=== PATIENT | male | born 1995 | race Caucasian/White ===

== ENCOUNTER 2023-04-05 17:35 | Emergency (ER) | payer BC ==
[2023-04-05 17:43] VITALS: RESP 18
[2023-04-05] MEDS ORDERED: KETOROLAC 15 MG/ML 1 ML VIAL IM STA (17:48)
[2023-04-05 18:28] LABS: Appearance,Urine Clear (Clear); Bilirubin,Urine Negative (Negative); Blood,Urine Negative (Negative); Color,Urine Colorless; Glucose,Urine (UA) Negative (Negative); Ketones,Urine Trace (Negative); Leukocyte Esterase,Urine Negative (Negative); Nitrite,Urine Negative (Negative); Protein,Urine Negative (Negative); Specific Gravity,Urine 1.011 (1.001-1.035); Urobilinogen,Urine <2.0 mg/dL (<2.0)
--- NOTE | 2023-04-05 20:02 | US ---
EXAMINATION TYPE: US scrotum with doppler. Grayscale and color Doppler Duplex imaging performed of krysten elias scrotum. DATE OF EXAM: 04/05/2023 COMPARISON: NONE CLINICAL INDICATION: Male, 27 years old with history of R testicle pain; Right testicle pain and swel ling per patient. No injury. EXAM MEASUREMENTS: TESTICLES: Right Testicle: 2.7 x 2.9 x 2.1 cm Left Testicle: 3.0 x 3.1 x 2.1 cm EPIDIDYMIS HEAD: Right Epididymis: 0.8 x 0.9 x 0.8 cm Left Epididymis: 0.7 x 0.8 x 0.9 cm Doppler performed to assess for testicular vascularity; good bilateral color flow and waveforms are s een. There is no evidence of testicular torsion. Presence of hydroceles: Small left Presence of varicoceles: no No evidence of testicular or extratesticular mass. IMPRESSION: No evidence of testicular torsion at the time of the exam. Small left hydrocele.
--- NOTE | 2023-04-05 20:16 | ED ---
Male Urogenital HPI - General Chief complaint: Urogenital Stated complaint: male gu Time Seen by Provider: 04/05/23 17:40 Source: patient, family Mode of arrival: ambulatory Limitations: no limitations - History of Present Illness Initial comments: 27-year-old male presenting with chief complaint of pain to the right testicle. States the pain started a few days ago and has been intermittent. States that he is having some swelling today. He also had swelling on the first day which went down the following day and return today. No redness. No dysuria or hematuria. States he is having some mild discomfort in the abdomen. No injury or trauma. - Related Data Allergies Allergy/AdvReac Type Severity Reaction Status Date / Time No Known Allergies Allergy Verified 04/05/23 17:39 Review of Systems ROS Statement: Those systems with pertinent positive or pertinent negative responses have been documented in the HPI. ROS Other: All systems not noted in ROS Statement are negative. Past Medical History Past Medical History: Diabetes Mellitus History of Any Multi-Drug Resistant Organisms: None Reported Past Surgical History: No Surgical Hx Reported Past Psychological History: ADD/ADHD, Anxiety, Depression Smoking Status: Never smoker Past Alcohol Use History: Occasional Past Drug Use History: Marijuana General Exam Limitations: no limitations General appearance: alert, in no apparent distress Head exam: Present: atraumatic, normocephalic, normal inspection Eye exam: Present: normal appearance, EOMI Neck exam: Present: normal inspection, full ROM Respiratory exam: Absent: respiratory distress exam: Present: normal inspection. Absent: testicular tenderness, scrotal swelling Neurological exam: Present: alert, oriented X3 Psychiatric exam: Present: normal affect, normal mood Skin exam: Present: warm, dry, intact, normal color. Absent: rash Course Vital Signs 04/05/23 04/05/23 17:36 20:24 Temperature 98.6 F 98.5 F Pulse Rate 89 98 Respiratory 18 18 Rate Blood Pressure 130/87 112/78 O2 Sat by Pulse 99 95 Oximetry Medical Decision Making - Medical Decision Making Was pt. sent in by a medical professional or institution (, PA, TEENAGE BABYSITTER, urgent care, hospital, or group home...) When possible be specific @ -No Did you speak to anyone other than the patient for history (EMS, parent, family, police, friend...)? What history was obtained from this source @ -No Did you review nursing and triage notes (agree or disagree)? Why? @ -I reviewed and agree with nursing and triage notes Were old charts reviewed (outside hosp., previous admission, EMS record, old EKG, old radiological studies, urgent care reports/EKG's, group home records)? Report findings @ -No old charts were reviewed Differential Diagnosis (chest pain, altered mental status, abdominal pain women, abdominal pain men, vaginal bleeding, weakness, fever, dyspnea, syncope, headache, dizziness, GI bleed, back pain, seizure, CVA, palpatations, mental health, musculoskeletal)? @ -Differential includes testicular torsion, epididymitis, orchitis, hydrocele, vericocele, this is not an all inclusive list EKG interpreted by me (3pts min.). @ -As above X-rays interpreted by me (1pt min.). @ -None done CT interpreted by me (1pt min.). @ -None done U/S interpreted by me (1pt. min.). @ -Ultrasound shows no evidence of testicular torsion. There is a small left hydrocele. What testing was considered but not performed or refused? (CT, X-rays, U/S, labs)? Why? @ -None What meds were considered but not given or refused? Why? @ -None Did you discuss the management of the patient with other professionals (professionals i.e. , PA, TEENAGE BABYSITTER, lab, RT, psych nurse, social service director, line worker, teacher, donor relations officer, renal case manager)? Give summary @ -No Was smoking cessation discussed for >3mins.? @ -No Was critical care preformed (if so, how long)? @ -No Were there social determinants of health that impacted care today? How? (Homelessness, low income, unemployed, alcoholism, drug addiction, transportation, low edu. Level, literacy, decrease access to med. care, custodial, rehab)? @ -No Was there de-escalation of care discussed even if they declined (Discuss DNR or withdrawal of care, Hospice)? DNR status @ -No What co-morbidities impacted this encounter? (DM, HTN, Smoking, COPD, CAD, Cancer, CVA, ARF, Chemo, Hep., AIDS, mental health diagnosis, sleep apnea, morbid obesity)? @ -None Was patient admitted / discharged? Hospital course, mention meds given and route, prescriptions, significant lab abnormalities, going to OR and other pertinent info. @ -27-year-old male presenting with chief complaint of testicular discomfort. History and physical exam were conducted. No evidence of swelling, erythema, or induration. Urine shows no infectious process. Ultrasound shows no evidence of torsion, there is a hydrocele present on the left side. Patient is educated on today's findings and supportive management for hydrocele. Follow-up with PCP. Report back to ER with any new or worsening symptoms. Discussed return parameters and answered all questions. Patient conveyed verbal understanding and agreed to the plan. I discussed this case in detail with my attending Dr. Gamino Undiagnosed new problem with uncertain prognosis? @ -No Drug Therapy requiring intensive monitoring for toxicity (Heparin, Nitro, Insulin, Cardizem)? @ -No Were any procedures done? @ -No Diagnosis/symptom? @ -Hydrocele Acute, or Chronic, or Acute on Chronic? @ -Acute Uncomplicated (without systemic symptoms) or Complicated (systemic symptoms)? @ -Uncomplicated Side effects of treatment? @ -No Exacerbation, Progression, or Severe Exacerbation? @ -No Poses a threat to life or bodily function? How? (Chest pain, [place], [place], pneumonia, PE, COPD, DKA, ARF, appy, cholecystitis, CVA, Diverticulitis, Homicidal, Suicidal, threat to staff... and all critical care pts) @ -No - Lab Data Lab Results 04/05/23 Range/Units 18:09 Urine Color Colorless Urine Appearance Clear (Clear) Urine pH 7.0 (5.0-8.0) Ur Specific [place] 1.011 (1.001-1.035) Urine Protein Negative (Negative) Urine Glucose (UA) Negative (Negative) Urine Ketones Trace H (Negative) Urine Blood Negative (Negative) Urine Nitrite Negative (Negative) Urine Bilirubin Negative (Negative) Urine Urobilinogen <2.0 (<2.0) mg/dL Ur Leukocyte Esterase Negative (Negative) Disposition Clinical Impression: Hydrocele Disposition: HOME SELF-CARE Condition: Good Instructions (If sedation given, give patient instructions): Hydrocele (ED), Testicle Pain (ED) Additional Instructions: Follow-up with PCP. Report back to ER with any new or worsening symptoms. Take Motrin and Tylenol as needed. Is patient prescribed a controlled substance at d/c from ED?: No Referrals: Jem Damon MD [Primary Care Provider] - 1-2 days Time of Disposition: 20:15
[2023-04-05 20:35] VITALS: BP 112/78; PULSE 98; TEMP 98.5
== END 2023-04-05 20:29 | disposition home or self-care (01) ==
LOC: EC 17:35
DX: N43.3 Hydrocele, unspecified (principal); E11.9 Type 2 diabetes mellitus without complications; F12.90 Cannabis use, unspecified, uncomplicated; Z86.59 Personal history of other mental and behavioral disorders
CPT/HCPCS: 81003; 87491; 87591; 93975; 76870; 99284; 96372; J1885

== ENCOUNTER 2023-05-21 18:02 | Emergency (ER) | payer BC ==
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
[2023-05-21 21:05] VITALS: BP 137/90; PULSE 90; RESP 16; TEMP 98.9
[2023-05-21 21:19] LABS: African American GFR (CKD) >90 (>60 ml/min/1.73 sqM); Anion Gap 14 mmol/L; Blood Urea Nitrogen 14 mg/dL (9-20); Calcium 9.5 mg/dL (8.4-10.2); Carbon Dioxide 25 mmol/L (22-30); Chloride 102 mmol/L (98-107); Glucose 150 mg/dL (74-99); Non-African American GFR(CKD) >90 (>60 ml/min/1.73 sqM); Potassium 4.1 mmol/L (3.5-5.1); Sodium 141 mmol/L (137-145)
[2023-05-21 21:26] LABS: HCT 44.4 % (39.0-53.0); HGB 15.2 gm/dL (13.0-17.5); MCH 29.5 pg (25.0-35.0); MCHC 34.1 g/dL (31.0-37.0); MCV 86.5 fL (80.0-100.0); Mean Platelet Volume 8.5; Platelet Count 218 k/uL (150-450); RBC 5.13 m/uL (4.30-5.90); RDW 13.3 % (11.5-15.5); WBC 9.8 k/uL (3.8-10.6)
[2023-05-21 22:00] LABS: INR 1.1 (<1.2); Partial Thromboplastin Time 24.4 sec (22.0-30.0); Prothrombin Time 11.5 sec (10.0-12.5)
== END 2023-05-21 21:02 | disposition home or self-care (01) ==
LOC: SUPCPDRO 18:02 → EC 18:02
DX: S80.212A Abrasion, left knee, initial encounter (principal); E11.9 Type 2 diabetes mellitus without complications; F12.90 Cannabis use, unspecified, uncomplicated; Z86.59 Personal history of other mental and behavioral disorders; V89.2XXA Person injured in unspecified motor-vehicle accident, traffic, initial encounter; Y92.411 Interstate highway as the place of occurrence of the external cause
CPT/HCPCS: 36415; 80048; 85027; 85610; 85730; 99284